=== PATIENT | female | born 1950 ===

== ENCOUNTER 2021-01-06 12:00 | Observation (INO) ==
[~2021-01-06 12:00] MED LIST: Buffered Lidocaine 1% SYRIN 1 ml INTRADERM ONE; Famotidine IV 10 MG/ML 2 ml VIAL (20 mg) IV ONE; Lactated Ringers 1000 ml BAG 1,000 ML IV SCH
[2021-01-06] MEDS ORDERED: ceFAZolin 2 GM PREMIX 2 GM/50 ML BAG ONE (13:26)
[2021-01-06] MEDS ORDERED: Famotidine IV 10 MG/ML 2 ml VIAL (20 mg) ONE (13:26)
[2021-01-06] MEDS ORDERED: Phenylephrine IV 10 MG/ML 1 ml VIAL ONE (14:30)
[2021-01-06] MEDS ORDERED: Midazolam 2 mg/2 ml VIAL 1 mg/ml 2 ml VIAL (2 mg) ONE (15:27)
[2021-01-06] MEDS ORDERED: fentaNYL 100 mcg/2 ml 50 MCG/ML VIAL ONE ×2 (15:27→18:47)
[2021-01-06] MEDS ORDERED: Propofol 10 MG/ML 20 ML BTL ONE ×2 (16:23→16:49)
[2021-01-06] MEDS ORDERED: DiMENhydriNATE IV 50 mg/ml 1 ml VIAL IV PUSH PRN (16:44)
[2021-01-06] MEDS ORDERED: Naloxone 0.4 mg VIAL 0.4 mg/ml 1 ml VIAL IV PRN (16:44)
[2021-01-06] MEDS ORDERED: Ondansetron 4 mg VIAL 2 MG/ML 2 ml VIAL IV PRN ×2 (16:44→16:46)
[2021-01-06] MEDS ORDERED: Lactulose 30 ml UDC PO PRN (16:46)
[2021-01-06] MEDS ORDERED: diPHENhydraMINE IV 50 MG/ML 1 ml VIAL (BENADRYL) IV PRN (16:46)
[2021-01-06] MEDS ORDERED: diPHENhydraMINE 25 mg TAB PO PRN (16:46)
[2021-01-06] MEDS ORDERED: Morphine 2 MG/ML SYRINGE IV PRN (16:46)
[2021-01-06] MEDS ORDERED: Ondansetron ODT 4 mg TAB 4 MG TAB PO PRN (16:46)
[2021-01-06] MEDS ORDERED: Magnesium Hydroxide LIQ 30 ML UDC PO PRN (16:46)
[2021-01-06] MEDS ORDERED: Lactated Ringers 1000 ml BAG 1,000 ML IV SCH (17:00)
[2021-01-06] MEDS ORDERED: Acetaminophen IV 1 GM/100ML 100 ML ONE (17:47)
[2021-01-06] MEDS ORDERED: Ondansetron 4 mg VIAL 2 MG/ML 2 ml VIAL ONE (18:18)
[2021-01-06] MEDS: fentaNYL 100 mcg/2 ml 50 MCG/ML VIAL IV PRN ×2 (18:50→19:58)
[2021-01-06] MEDS: Magnesium Hydroxide LIQ 30 ML UDC PO SCH (22:31)
[2021-01-06] MEDS: oxyCODONE/Acetamin 5/325 mg TAB PO PRN (22:31)
[2021-01-07] MEDS: ceFAZolin 1 GM ADVAN 1 GM in NS 0.9% 50 ML 50 ML IVPB SCH ×3 (01:00→16:49)
[2021-01-07] MEDS: oxyCODONE/Acetamin 5/325 mg TAB PO PRN (05:42)
[2021-01-07 06:55] LABS: Hematocrit 36 % (35-47); Hemoglobin 12.1 g/dL (12.0-16.0); Mean Platelet Volume 7.9 fL (7.4-10.4); Platelet Count 236 10^3/uL (150-450)
[2021-01-07 07:13] LABS: BUN/Creatinine Ratio 17.1 (8-20); Calcium 9.2 mg/dL (8.6-10.3); EGFR African American 83.4 (>60); EGFR Non-African American 68.9 (>60); Potassium 4.2 mmol/L (3.5-5.0)
[2021-01-07] MEDS: Vitamin THERAPEUTIC TAB PO SCH (08:34)
[2021-01-07] MEDS: Magnesium Hydroxide LIQ 30 ML UDC PO SCH ×2 (08:34→20:07)
[2021-01-08 05:08] LABS: Hematocrit 34 % (35-47); Hemoglobin 11.6 g/dL (12.0-16.0); Platelet Count 219 10^3/uL (150-450)
[2021-01-08] MEDS: Vitamin THERAPEUTIC TAB PO SCH (08:14)
[2021-01-08] MEDS: Magnesium Hydroxide LIQ 30 ML UDC PO SCH (08:15)
[2021-01-08] MEDS ORDERED: Pneumococcal Vac 23-Polyvalent IM ONE (09:00)
[2021-01-08 12:38] VITALS: BP 117/56
== END 2021-01-08 19:16 | disposition home or self-care (01) ==
LOC: AA 13:03 → INTOOBSV 13:03 → SSU 21:11
PROVIDERS: ADMIT Orthopaedic Surgery Adult Reconstructive Orthopaedic Surgery; ATTEND Orthopaedic Surgery Adult Reconstructive Orthopaedic Surgery